=== PATIENT | female | born 1985 | race Caucasian/White ===

== ENCOUNTER 2016-12-08 05:35 | Inpatient (IN) | payer OTHER ==
[~2016-12-08] VITALS: Ht 160 cm; Wt 126.1 kg
[2016-12-08 05:50] VITALS: BP 123/80
[2016-12-08 05:51] VITALS: BP 123/80
[2016-12-08 06:55] LABS: EOSINOPHIL (%) 1.4 % (0-5); EOSINOPHIL COUNT 0.1 K/uL (0-0.3); HEMATOCRIT 28.4 % (36.0-46.0); IMMATURE GRANULOCYTE (%) 0.5 % (0.0-0.7); INSTRUMENT ABS NEUTROPHIL CT 5.3 K/uL; LYMPHOCYTE COUNT 1.9 K/uL (1.0-2.8); MCH 25.4 PG (29.0-34.0); MCV 82.1 FL (83-99); MEAN PLAT.VOLUME 10.8 uM^3 (9.5-12.4); MONOCYTE (%) 6.1 % (3-12); MONOCYTE COUNT 0.5 K/uL (0-0.8); NEUTROPHIL (%) 67.1 % (45-76); NEUTROPHIL COUNT 5.3 K/uL (1.8-6.4); PLATELET COUNT 209 K/uL (156-360); RBC DIS.WIDTH-CV 15.4 % (11.8-14.6); RBC DIS.WIDTH-SD 45.6 % (39-53); RED BLOOD COUNT 3.46 M/uL (3.80-5.20); WHITE BLOOD COUNT 7.8 K/uL (4.1-10.2)
[2016-12-08 10:29] VITALS: BP 120/59
[2016-12-08] MEDS ORDERED: PERCOCET 5/31 TABLET PO (13:51)
[2016-12-08] MEDS ORDERED: MOTRIN800 MG PO (13:52)
[2016-12-08 14:00] VITALS: BP 117/72
[2016-12-08 16:00] VITALS: BP 127/74
[2016-12-08 18:00] VITALS: BP 125/82
[2016-12-09 02:54] VITALS: BP 107/52
[2016-12-09 07:20] VITALS: BP 104/60
[2016-12-09 07:33] LABS: EOSINOPHIL (%) 0.9 % (0-5); EOSINOPHIL COUNT 0.1 K/uL (0-0.3); HEMATOCRIT 25.9 % (36.0-46.0); IMMATURE GRANULOCYTE (%) 0.5 % (0.0-0.7); INSTRUMENT ABS NEUTROPHIL CT 5.5 K/uL; LYMPHOCYTE COUNT 1.6 K/uL (1.0-2.8); MCH 26.9 PG (29.0-34.0); MCHC 32.4 G/DL (30.0-36.0); MEAN PLAT.VOLUME 11.2 uM^3 (9.5-12.4); MONOCYTE (%) 5.6 % (3-12); MONOCYTE COUNT 0.4 K/uL (0-0.8); NEUTROPHIL (%) 72.2 % (45-76); NEUTROPHIL COUNT 5.5 K/uL (1.8-6.4); PLATELET COUNT 171 K/uL (156-360); RBC DIS.WIDTH-CV 15.9 % (11.8-14.6); RBC DIS.WIDTH-SD 47.5 % (39-53); RED BLOOD COUNT 3.12 M/uL (3.80-5.20); WHITE BLOOD COUNT 7.6 K/uL (4.1-10.2)
[2016-12-09 11:12] VITALS: BP 114/65
[2016-12-09 15:19] VITALS: BP 112/63
[2016-12-10 07:25] VITALS: BP 101/62
== END 2016-12-10 14:10 | disposition home or self-care (01) | DRG 766 ==
LOC: 2WEST 05:35 → 2SOUTH 07:43 → 2WEST 12-10 14:10
PROVIDERS: Obstetrics & Gynecology
PROC: 10D00Z1 Extraction of Products of Conception, Low, Open Approach (ICD-10-PCS; principal; 2016-12-08)
DX: O34.211 Maternal care for low transverse scar from previous cesarean delivery (principal); O99.844 Bariatric surgery status complicating childbirth; O99.02 Anemia complicating childbirth; Z3A.39 39 weeks gestation of pregnancy; Z37.0 Single live birth
CPT/HCPCS: 85025; 86850; 86900; 86901; J1170; J1200; J1580; J2274; J2300; J2405; J2765; J3010; J7050; J7120